=== PATIENT | female | born 1945 | race Caucasian/White ===

== ENCOUNTER 2025-05-25 21:03 | Emergency (ER) | payer MEDICARE ==
[2025-05-25 23:03] LABS: #Basophils 0.05 10x3/uL (0.0-0.2); #Eosinophils 0.06 10x3/uL (0.0-0.7); #Monocytes 0.61 10x3/uL (0.11-0.59); #Neutrophils 9.41 10x3/uL (1.40-6.50); %Basophils 0.4 % (0.0-1.0); %Eosinophils 0.5 % (0.0-10.0); %Lymphocytes 10.6 % (21.0-51.0); %Monocytes 5.4 % (0.0-10.0); %Neutrophils 82.8 % (42.0-75.0); Hematocrit 38.3 % (36.0-47.0); Hemoglobin 12.6 g/dL (12.0-16.0); Mean Corpuscular Hemoglobin 30.6 pg (27.0-31.0); Mean Corpuscular Volume 93.0 fL (78.0-98.0); Platelet Count 146 10x3/uL (130-400); Red Blood Cell (RBC) Count 4.12 mill/uL (4.20-5.40); White Blood Cell (WBC) Count 11.37 10x3/uL (4.8-10.8)
[2025-05-25 23:23] LABS: ALT (SGPT) 13 U/L (Less than 34); AST (SGOT) 25 U/L (11-34); Albumin 4.2 g/dL (3.1-4.5); Alkaline Phosphatase 74 U/L (40-110); Anion Gap 16 mmol/L (10-20); BUN (Urea Nitrogen) 16 mg/dL (9.8-20.1); Bilirubin, Total 0.3 mg/dL (0.3-1.2); Calc. Creatinine Clearance 0 mL/min (70-130); Calcium 9.3 mg/dL (7.8-10.44); Carbon Dioxide 19 mmol/L (23-31); Chloride 102 mmol/L (98-107); Globulin 2.9 g/dL (2.4-3.5); Glucose 123 mg/dL (83-110); Potassium 3.8 mmol/L (3.5-5.1); Sodium 133 mmol/L (136-145)
== END 2025-05-26 00:43 | disposition home or self-care (01) ==
LOC: ERS 21:03
DX: Z04.3 Encounter for examination and observation following other accident (principal); I10 Essential (primary) hypertension
CPT/HCPCS: 70450; 71045; 72125; 72170; 80053; 84484; 85025; 93005; 94760